=== PATIENT | female | born 1965 | race Caucasian/White ===

== ENCOUNTER → 2016-07-23 | Outpatient (CLI) | payer OTHER | LOC: MC.RAD 07-02 14:20 | DX: Z12.31 Encounter for screening mammogram for malignant neoplasm of breast (principal) ==

== ENCOUNTER 2017-07-29 12:56 | Day surgery (SDC) | payer OTHER ==
[~2017-07-29] VITALS: Ht 167.6 cm; Wt 54.6 kg
[2017-07-29 13:13] VITALS: BP 110/79; PULSE 77; TEMP 98.2
[2017-07-29] MEDS ORDERED: BLISOVI 24 FE1 EACH PO (13:19)
[2017-07-29] MEDS ORDERED: FLONASE NASAL S16 GM NS (13:20)
[2017-07-29] MEDS ORDERED: LEADER EYE ITCH5 ML OP (13:21)
[2017-07-29] MEDS ORDERED: TURMERIC500 MG PO (13:21)
[2017-07-29] MEDS ORDERED: PROBIOTIC FORMU1 CAP PO (13:22)
[2017-07-29 15:30] VITALS: BP 104/71; PULSE 78
[2017-07-29 15:45] VITALS: BP 96/71; PULSE 71
[2017-07-29 16:00] VITALS: BP 94/78; PULSE 69
[2017-07-29 17:23] VITALS: BP 93/67; PULSE 79
== END 2017-07-29 16:14 | disposition home or self-care (01) ==
LOC: SDCO 12:56
DX: Z12.11 Encounter for screening for malignant neoplasm of colon (principal); K64.0 First degree hemorrhoids; K58.9 Irritable bowel syndrome, unspecified; D64.9 Anemia, unspecified; Z88.0 Allergy status to penicillin
CPT/HCPCS: OP; J2250; J3010; J7030

== ENCOUNTER → 2017-09-02 | Outpatient (CLI) | payer OTHER ==
[~2017-09-02] MED LIST: BLISOVI 24 FE1 EACH PO; FLONASE NASAL S16 GM NS; LEADER EYE ITCH5 ML OP; PROBIOTIC FORMU1 CAP PO; TURMERIC500 MG PO
== END ==
LOC: MC.RAD 13:40
DX: Z12.31 Encounter for screening mammogram for malignant neoplasm of breast (principal)

== ENCOUNTER → 2018-10-13 | Outpatient (CLI) | payer BC | LOC: MC.RAD 13:45 | DX: Z12.31 Encounter for screening mammogram for malignant neoplasm of breast (principal) ==

== ENCOUNTER → 2021-10-30 | Outpatient (CLI) | payer BC | LOC: MC.RAD 15:44 | DX: Z12.31 Encounter for screening mammogram for malignant neoplasm of breast (principal) ==